=== PATIENT | female | born 1995 | race Two or more races ===

== ENCOUNTER → 2017-07-02 | Outpatient (REF) | payer OTHER | LOC: M SFHCLERA 14:15 | DX: J00 Acute nasopharyngitis [common cold] (principal) ==

== ENCOUNTER → 2018-05-14 | Outpatient (REF) | payer OTHER ==
[2018-05-14 19:48] LABS: CHLAMYDIA DNA AMPLIFICATION NEGATIVE (NEGATIVE); GC DNA AMPLIFICATION NEGATIVE (NEGATIVE)
== END ==
LOC: M LAB REF 17:06
DX: Z11.3 Encounter for screening for infections with a predominantly sexual mode of transmission (principal)

== ENCOUNTER → 2018-05-15 | Outpatient (REF) | payer OTHER ==
[2018-05-22 14:14] LABS: HPV HYBRID CAPTURE II Negative (Negative)
== END ==
LOC: M LAB REF 19:04
DX: Z12.4 Encounter for screening for malignant neoplasm of cervix (principal)
CPT/HCPCS: G0123

== ENCOUNTER → 2019-07-15 | Outpatient (REF) | payer OTHER ==
[2019-07-15 11:16] LABS: HEMOGLOBIN 13.3 g/dl (12.0-15.5); MEAN CORPUSCULAR HEMOGLOBIN 32.8 pg (27.0-33.0); MEAN CORPUSCULAR VOLUME 93.8 fl (80.0-96.0); PLATELET COUNT, AUTOMATED 219 10^3/uL (150-450); RED BLOOD COUNT 4.05 10^6/uL (4.00-5.40); WHITE BLOOD COUNT 10.1 10^3/uL (4.0-10.0)
[2019-07-15 14:55] LABS: CHLAMYDIA DNA AMPLIFICATION NEGATIVE (NEGATIVE); GC DNA AMPLIFICATION NEGATIVE (NEGATIVE)
[2019-07-16 12:06] LABS: HEPATITIS B SURFACE ANTIGEN NEGATIVE (NEGATIVE); HEPATITIS C VIRUS ABY INDEX < 0.0 INDEX (<0.8); HIV 1&2 SCREEN CENTAUR NEGATIVE (NEGATIVE); RUBELLA IgG QUALITATIVE IMMUNE (IMMUNE)
== END ==
LOC: M PLALAB 09:13
PROVIDERS: ATTEND Advanced Practice Midwife
DX: Z34.01 Encounter for supervision of normal first pregnancy, first trimester (principal)

== ENCOUNTER → 2019-08-14 | Outpatient (CLI) | payer OTHER | LOC: M PLALAB 08:37 | PROVIDERS: ATTEND Nurse Practitioner Women's Health | DX: Z34.81 Encounter for supervision of other normal pregnancy, first trimester (principal) ==

== ENCOUNTER → 2019-09-30 | Outpatient (CLI) | payer OTHER ==
--- NOTE | 2019-09-30 18:14 | REP ---
Clinical: Anatomical evaluation. Comparison: None . Findings: Examination demonstrates a single live intrauterine in transverse (head to maternal left) presentation. motion is identified by technologist. Placenta is noted anterior and grade zero without evidence for placenta previa or abruption. Amniotic fluid volume is normal. Cervix measures 4.2 cm in length and appears closed. No evidence for nuchal cord. Gestational age by current measurements 19 weeks 0 days with JESSICA 02/24/2020 . FHR equals 160 beats per minute. BPD 4.4 cm 19 weeks 3 days HC 16.6 cm 19 weeks 2 days AC 13.8 cm 19 weeks 2 days FL 2.9 cm 18 weeks 6 days HL 2.9 send in its 19 weeks 2 days HC/AC ratio 1.20 Estimated weight 274 grams ( 50th percentile). Anatomical assessment demonstrates normal structures including cranium, choroid plexus, cavum, cerebellum/posterior fossa, lungs, diaphragm, stomach, cord insertion/three-vessel cord, kidneys/bladder, spine, and extremities. Impression: 1. Single live intrauterine in transverse lie demonstrating appropriate interval growth. 2. Limited evaluation of the facial features and cardiac ventricular outflow tracts.
== END ==
LOC: M WHC 10:55
PROVIDERS: ATTEND Advanced Practice Midwife
DX: Z36.89 Encounter for other specified antenatal screening (principal); Z3A.19 19 weeks gestation of pregnancy

== ENCOUNTER → 2019-11-04 | Outpatient (CLI) | payer OTHER ==
--- NOTE | 2019-11-04 18:39 | REP ---
Clinical: Anatomical evaluation. Comparison: 09/30/2019 . Findings: Examination demonstrates a single live intrauterine in cephalic presentation. motion is identified by technologist. Placenta is noted anterior and grade I without evidence for placenta previa or abruption. Amniotic fluid volume is normal. Cervix measures 3.6 cm in length and appears closed. No evidence for nuchal cord. Gestational age by first US 24 weeks 0 days with JESSICA 02/24/2020 . Gestational age by current measurements 23 weeks 4 days with JESSICA 02/27/2020 . FHR equals 152 beats per minute. Estimated weight 640 grams ( 41st percentile). Anatomical assessment demonstrates normal structures including facial features and heart/ventricular outflow tract. Impression: Single live intrauterine demonstrating appropriate interval growth. In conjunction with prior examination anatomical assessment is complete and normal.
== END ==
LOC: M WHC 08:21
PROVIDERS: ATTEND Advanced Practice Midwife
DX: Z34.02 Encounter for supervision of normal first pregnancy, second trimester (principal); Z36.2 Encounter for other antenatal screening follow-up; Z3A.24 24 weeks gestation of pregnancy

== ENCOUNTER → 2019-11-25 | Outpatient (REF) | payer OTHER ==
[2019-11-25 10:41] LABS: HEMATOCRIT 31.7 % (36.0-47.0); HEMOGLOBIN 10.8 g/dl (12.0-15.5); MEAN CORPUSCULAR HEMOGLOBIN 33.2 pg (27.0-33.0); MEAN CORPUSCULAR HGB CONC 34.1 g/dl (32.0-36.5); MEAN CORPUSCULAR VOLUME 97.5 fl (80.0-96.0); PLATELET COUNT, AUTOMATED 183 10^3/uL (150-450); RED BLOOD COUNT 3.25 10^6/uL (4.00-5.40); WHITE BLOOD COUNT 9.5 10^3/uL (4.0-10.0)
== END ==
LOC: M PLALAB 08:23
PROVIDERS: ATTEND Advanced Practice Midwife
DX: Z34.02 Encounter for supervision of normal first pregnancy, second trimester (principal)
CPT/HCPCS: 36415; 82950; 85027; 86850; 86900; 86901; J2790